=== PATIENT | male | born 1985 | race African-American/Black ===

== ENCOUNTER 2016-07-10 14:25 | Emergency (ER) | payer MEDICAID, OTHER ==
[~2016-07-10] VITALS: Ht 188 cm; Wt 113.4 kg
[~2016-07-10 14:25] MED LIST: CEPHALEXIN500 MG ORAL; IBUPROFEN600 MG ORAL; NAPROXEN375 MG ORAL; NKM; RANITIDINE HCL150 MG ORAL; VICODIN1 TA1 ORAL
[2016-07-10 15:11] VITALS: BP 129/89
[2016-07-10] MEDS ORDERED: TRAMADOL HCL50 MG ORAL (15:32)
[2016-07-10] MEDS ORDERED: IBUPROFEN600 MG ORAL (15:32)
[2016-07-10 16:46] VITALS: BP 125/85
[2016-07-10 16:47] VITALS: BP 125/85
--- NOTE | 2016-07-10 20:02 | Emergency Room Report ---
History of Present Illness General Chief Complaint: Pain Source: Patient Present Illness HPI The patient is a 31-year-old male with a stated history of diabetes presenting for right upper back and chest pain which began 2 days prior. 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 Pain is described as a constant 9/10 sharp sensation it radiates from the upper back to the mid chest. He denies any prior injury to this area. Pain worse with deep breaths and touch. He denies any other pain. He denies any other symptoms including fever, chills, shortness of breath, diaphoresis Allergies: Coded Allergies: No Known Allergies (Unverified , 08/26/12) Patient History Past Medical History: see triage record Pertinent Family History: none Reviewed Nursing Documentation: PMH: Agreed, PSxH: Agreed Nursing Documentation-PMH Past Medical History: No Stated History Review of Systems All Other Systems: negative except mentioned in HPI Physical Exam Vital Signs Date Time Temp Pulse Resp B/P Pulse Ox O2 Delivery O2 Flow Rate FiO2 07/10/16 14:34 97.7 84 20 134/93 96 Room Air Sp02 EP Interpretation: reviewed, normal General Appearance: no apparent distress, alert, GCS 15, non-toxic Head: normocephalic, atraumatic Eyes: bilateral eye PERRL, bilateral eye normal inspection ENT: hearing grossly normal, normal pharynx, no angioedema, normal voice Respiratory: lungs clear, normal breath sounds, no respiratory distress, no accessory muscle use, no wheezing, speaking full sentences Cardiovascular #1: regular rate, rhythm, no edema Musculoskeletal: normal range of motion, tender - TTP over R mid thoracic rib Neurologic: alert, oriented x3, responsive, motor strength/tone normal, sensory intact, speech normal Psychiatric: judgement/insight normal, memory normal, mood/affect normal, no suicidal/homicidal ideation Skin: normal color, no rash, warm/dry, well hydrated Lymphatic: no adenopathy Medical Decision Making PA Attestation Dr. Mason is my supervising physician. Patient management was discussed with my supervising physician Diagnostic Impression: Primary Impression: Contusion of rib on right side Qualified Codes: S20.211A - Contusion of right front wall of thorax, initial encounter ER Course The patient is a 31-year-old male with a stated history of diabetes presenting for right upper back and chest pain Differential diagnosis include but not limited to ACS, PE, pneumonia, contusion , strain PE: vitals WNL. NAD Chest: There is tenderness to palpation along right mid thoracic ribs. Symmetrical chest expansion. CTA bilat No ecchymosis. No edema. RRR. Chest x-ray and EKG are both unremarkable The patient we discharged home with a prescription for Motrin and will follow up with PMD. ER precautions given EKG Diagnostic Results Rate: normal - 75 Rhythm: NSR ST Segments: no acute changes ASA given to the pt in ED: No PA Scribe Text EKG was reviewed and read with my supervising physician. No acute ST segment changes are seen. Normal rate and rhythm. No acute changes. Chest X-Ray Diagnostic Results EP Interpretation: Yes Findings: no consolidation, no effusion, no pneumothorax, no acute cardiopulmonary disease Number of Views: 1 PA Scribe Text I am acting as scribe for my supervising physician. My supervising physician's interpretation of the chest xrays are there is no consolidation, no effusion, no acute cardiopulmonary disease, no pneumothorax Last Vital Signs Date Time Temp Pulse Resp B/P Pulse Ox O2 Delivery O2 Flow Rate FiO2 07/10/16 16:47 97.5 76 18 125/85 100 Room Air Status: improved Disposition: HOME, SELF-CARE Condition: Improved Scripts Tramadol Hcl* (ULTRAM*) 50 Mg Tablet 50 MG ORAL Q6H Y for For Pain, #10 TAB 0 Refills Prov: TERNICHELLEANCATHYY P.A. 07/10/16 Ibuprofen* (MOTRIN*) 600 Mg Tablet 600 MG ORAL Q8H Y for For Pain, #30 TAB 0 Refills Prov: DUANEANSAMANTHA P.A. 07/10/16 Referrals: EMPLOYEE [facility],LUCIA (PCP) Patient Instructions: Rib Contusion Additional Instructions: I discussed my findings with the patient. All questions and concerns have been answered. Treatment and medication compliance have been addressed. I advised the patient that they need to follow up with PMD in 3-5 days. Return to ED if symptoms worsen, new symptoms arise, or if needed for any reason. Patient verbalized understanding of discharge instructions. [email or web address] July 10, 2016 20:02
--- NOTE | 2016-07-11 08:39 | Diagnostic Imaging Report ---
Indication: Chest pain Technique: One view of the chest Comparison: none Findings: Body habitus limits evaluation. Lungs and pleural spaces are clear. Heart size is normal Impression: No acute process
--- NOTE | 2016-07-11 15:59 | Cardiology Report ---
APPROVED REPORT EKG Measurement Heart [id number] Normal sinus rhythm Nonspecific ST and T wave abnormality Abnormal ECG
== END 2016-07-10 16:47 | disposition home or self-care (01) ==
LOC: EMR 15:41
DX: S20.211A Contusion of right front wall of thorax, initial encounter (principal); X58.XXXA Exposure to other specified factors, initial encounter; Y92.89 Other specified places as the place of occurrence of the external cause
CPT/HCPCS: 71010; 93005; 99284